=== PATIENT | female | born 1985 | race Two or more races ===

== ENCOUNTER → 2019-10-03 | Outpatient (CLI) | payer OTHER | END | disposition home or self-care (01) | LOC: LAB SALUS 09:16 | PROVIDERS: ATTEND General Practice | DX: Z11.4 Encounter for screening for human immunodeficiency virus [HIV] (principal); Z72.51 High risk heterosexual behavior; Z11.3 Encounter for screening for infections with a predominantly sexual mode of transmission ==

== ENCOUNTER 2021-09-15 13:25 | Outpatient (CLI) | payer OTHER | END 2021-09-15 13:29 | disposition home or self-care (01) | LOC: RAD 13:25 | PROVIDERS: ATTEND Specialist | DX: Z01.818 Encounter for other preprocedural examination (principal) ==